=== PATIENT | male | born 1980 | race Caucasian/White ===

== ENCOUNTER 2018-05-14 20:49 | Emergency (ER) | payer SELFPAY ==
--- NOTE | 2018-05-14 21:08 | ED.GENADUL ---
Disposition Clinical Impression: Accidental heroin overdose Disposition: HOME Condition: Good Additional Instructions: Avoid drugs in the future. Avoid alcohol tonight. Follow-up primary care as needed. Return to ED for decreasing mental status, vomiting, other problems. Referrals: Primary Care Provider [Outside] Medical Decision Making - Medical Decision Making Patient arrives here awake and alert. His vital signs are normal. He is given Zofran ODT for the nausea. He has agreed to be watched for the next few hours to make sure he does not have any issues as the Narcan wears off. Patient observed for 2 hours with no rebound. He remains awake and alert with reactive pupils. He has no complaints. He understands the severity of his overdose. States that he has no intention to continue to use heroin. Advised not to consume alcohol tonight. Follow-up with PCP as needed. Return to ED if any problems. History of Present Illness - General Stated complaint: CALEX Time Seen by Provider: 05/14/18 20:58 Source: patient, EMS Mode of arrival: EMS Limitations: no limitations - History of Present Illness Initial comments: Patient presents to ED status post heroin overdose. Patient has been clean for a very long time. Tonight he shot up two bags of heroin. He became unresponsive with agonal respirations. When [facility] arrived he received 4 mg grams of intranasal Narcan. He did require BVM. Ultimately received a total of 12 mg of Narcan intranasally before he woke up. He arrives here somewhat nauseated. He had had some wine earlier in the afternoon. He denies any other drug use. He was not trying to harm himself. He is not on methadone or Suboxone. - Related Data Unknown [No Known Home Meds] 05/14/18 Allergies Allergy/AdvReac Type Severity Reaction Status Date / Time No Known Allergies Allergy Unverified 05/14/18 21:16 Review of Systems Constitutional: denies: chills, fever ENT: denies: ear pain, congestion Respiratory: denies: cough, shortness of breath Cardiovascular: denies: chest pain Gastrointestinal: nausea. denies: abdominal pain, vomiting Musculoskeletal: denies: back pain, arthralgia Skin: denies: rash Neurological: denies: headache, weakness, numbness Psychiatric: denies: homicidal thoughts, suicidal thoughts Past Medical History - Past Medical History Medical history: no medical history Surgical history: cholecystectomy, other (Splenectomy) - Social History Smoking status: current everyday smoker Alcohol use: recent Drug use: opiates General Exam - General General appearance: alert, in no apparent distress - Head Head exam: Present: atraumatic, normocephalic - Eye Eye exam: Present: PERRL - Respiratory Respiratory exam: Present: normal lung sounds bilaterally - Cardiovascular Cardiovascular Exam: Present: regular rate, normal rhythm, normal heart sounds - GI/Abdominal GI/Abdominal exam: Present: soft. Absent: distended, tenderness, guarding - Extremities Exam Extremities exam: Present: normal inspection, full ROM - Neurological Exam Neurological exam: Present: alert, oriented X3, CN II-XII intact. Absent: motor sensory deficit - Psychiatric Psychiatric exam: Present: normal affect, normal mood
[2018-05-14 21:09] VITALS: BP 114/76; PULSE 85; RESP 16; TEMP 36.6; O2SAT 97
[2018-05-14 21:12] VITALS: RESP 16
[2018-05-14 23:20] VITALS: BP 124/76; PULSE 104; RESP 16; O2SAT 97
== END 2018-05-14 23:30 | disposition home or self-care (01) ==
PROVIDERS: Emergency Provider Emergency Medicine
DX: T40.1X1A Poisoning by heroin, accidental (unintentional), initial encounter (principal); R11.0 Nausea; F11.10 Opioid abuse, uncomplicated
CPT/HCPCS: 99285; 99284

== ENCOUNTER 2019-01-26 16:31 | Emergency (ER) | payer MEDICAID, SELFPAY ==
[2019-01-26 16:42] VITALS: BP 121/64; PULSE 88; RESP 15; TEMP 36.5; O2SAT 95
--- NOTE | 2019-01-26 17:01 | W.ED.GENAD ---
Discharge Plan Disposition Patient Disposition: HOME Condition: Stable Discharge Details Chief Complaint: GenMedical Clinical Impression: Fatigue Primary Care Provider: Muna,Local ED Provider: Edy Chavarria Home Meds and New Rx's Prescriptions: No Action No Known Home Meds RF: 0 Discharge Instructions Additional Instructions: Your EKG does not show any concerning findings Follow up with your primary care provider within 1-2 weeks keep a log when you have the symptoms of what you are doing at the time to show your primary care provider if symptoms are worsening, or you have worsening symptoms such as fever or shortness of breath return to the emergency department Medical Decision Making 38 yo male with hx of substance abuse who is currently smoking opiates intermittently per pt, is hepatitis C positive, who comes in with complaints of over a year of intermittent very brief periods of fatigue and feels his knees might buckle. States it is not daily and can't think of any exacerbating factors that brings it on. He did not have symptoms today, he actually was calling his pcp's office to discuss a hepatitis med and mentioned hese intermittent symptoms and states the nurse told him to come here He denies fevers, chills, chest pain, sob, abd pain. He has no murmurs on exam is speaking in full sentences and denies any symptoms now. He has no focal neuro deficits. I suspect his symptoms could be related to the drug use, also could be due to sleep disorders. Negative ros otherwise so doubt entities such as thyroid disorder, anemia, and has no findings to suggest arrythmia and has normal ekg. Do not feel any acute workup indicated. Will d/c home and advised to try and keep journal of when he has these symptoms and if they last longer than a few seconds or has new symptoms such as fevers, chest pain or dyspnea to return to the ED and that he should also f/u with pcp. I offered referral for help with his substance abuse but he declined at this time. Differential Diagnosis narcolepsy, arrythmia, drug use disorder ECG Data Attestation: I personally reviewed and interpreted this ECG (s) as follows: Prior ECG tracings: not available for review Interpretation: sinus rhythm, rate of 78, pr 128, qtc 415 HPI General Mode of arrival: ambulatory. Date/Time Provider Initiated Documentation: 01/26/19 16:45. Limitations to Documentation: no limitations. Information obtained by: patient. History of Present Illness 38 year old M presents to the emergency department with the chief complaint of fatigue spells, Patient started experiencing this year(s) (1) and it has been intermittent. No relieving factors improve symptom(s), No exacerbating factors reported . Patient notes no other symptoms.. Patient did receive the following treatments prior to arrival, none Related Data Home Medications Medication Instructions Recorded Confirmed Unknown [No Known Home Meds] 05/14/18 05/14/18 Allergies Allergy/AdvReac Type Severity Reaction Status Date / Time No Known Allergies Allergy Unverified 01/26/19 16:48 General Stated Complaint: GenMedical ISAK: 3 Review of Systems Review of Systems All systems reviewed & are unremarkable except as noted in HPI and below Constitutional Denies chills and Denies fever(s) ENT Denies change in voice Cardiovascular Denies chest pain and Denies dyspnea Respiratory Denies dyspnea Gastrointestinal Denies abdominal pain, Denies nausea and Denies vomiting Genitourinary Denies dysuria Musculoskeletal Denies joint swelling Integumentary/Breasts Denies rash Endocrine Denies cold intolerance and Denies heat intolerance PFSH Social History Smoking/Tobacco Use Status: Current-Occasional Tobacco Type: cigarettes Details: Fentanyl 2 x week Do you feel safe at home: Yes Do you feel safe in your relationship?: Yes Exam Const General: no acute distress Orientation: alert HENMT Head: normal to inspection Ears: external ears normal General nose exam: external nose normal Mouth: moist mucous membranes Eyes General: appearance normal, both eyes and all related structures Neck Neck: normal visual inspection Resp Effort & Inspection: normal respiratory effort and able to speak in complete sentences Cardio Rate: regular rate Skin General skin exam: no rashes or lesions noted Neuro General: alert and oriented x3 Extrem General: normal to inspection Psych Mental Status: mental status grossly normal Course Vital Signs Temperature 36.5 C 01/26/19 16:42 Pulse 88 01/26/19 16:42 Respiratory Rate 15 01/26/19 16:42 Blood Pressure 121/64 01/26/19 16:42 Pulse Oximetry 95 01/26/19 16:42 Temperature 36.5 C 01/26/19 16:42 Temperature Source Temporal Artery Scan 01/26/19 16:42 Pulse 88 01/26/19 16:42 Respiratory Rate 15 01/26/19 16:42 Respiratory Effort Non-Labored 01/26/19 16:47 Blood Pressure 121/64 01/26/19 16:42 Blood Pressure Position Sitting 01/26/19 16:42 Pulse Oximetry 95 01/26/19 16:42 Oxygen Delivery Method Room Air 01/26/19 16:42 Oxygen Flow Rate 0 01/26/19 16:42 Pain Level 0 01/26/19 16:42
--- NOTE | 2019-01-26 17:11 | ED.GENADUL_ITS ---
Discharge Plan Disposition Patient Disposition: HOME Condition: Stable Discharge Details Chief Complaint: GenMedical Clinical Impression: Fatigue Primary Care Provider: Muna,Local ED Provider: Edy Chavarria Home Meds and New Rx's Prescriptions: No Action No Known Home Meds RF: 0 Discharge Instructions Additional Instructions: Your EKG does not show any concerning findings Follow up with your primary care provider within 1-2 weeks keep a log when you have the symptoms of what you are doing at the time to show your primary care provider if symptoms are worsening, or you have worsening symptoms such as fever or shortness of breath return to the emergency department Medical Decision Making 38 yo male with hx of substance abuse who is currently smoking opiates intermittently per pt, is hepatitis C positive, who comes in with complaints of over a year of intermittent very brief periods of fatigue and feels his knees might buckle. States it is not daily and can't think of any exacerbating factors that brings it on. He did not have symptoms today, he actually was calling his pcp's office to discuss a hepatitis med and mentioned hese intermittent symptoms and states the nurse told him to come here He denies fevers, chills, chest pain, sob, abd pain. He has no murmurs on exam is speaking in full sentences and denies any symptoms now. He has no focal neuro deficits. I suspect his symptoms could be related to the drug use, also could be due to sleep disorders. Negative ros otherwise so doubt entities such as thyroid disorder, anemia, and has no findings to suggest arrythmia and has normal ekg. Do not feel any acute workup indicated. Will d/c home and advised to try and keep journal of when he has these symptoms and if they last longer than a few seconds or has new symptoms such as fevers, chest pain or dyspnea to return to the ED and that he should also f/u with pcp. I offered referral for help with his substance abuse but he declined at this time. Differential Diagnosis narcolepsy, arrythmia, drug use disorder ECG Data Attestation: I personally reviewed and interpreted this ECG (s) as follows: Prior ECG tracings: not available for review Interpretation: sinus rhythm, rate of 78, pr 128, qtc 415 HPI General Mode of arrival: ambulatory . Date/Time Provider Initiated Documentation: 01/26/19 16:45 . Limitations to Documentation: no limitations . Information obtained by: patient . History of Present Illness 38 year old M presents to the emergency department with the chief complaint of fatigue spells, Patient started experiencing this year(s) (1) and it has been intermittent. No relieving factors improve symptom(s), No exacerbating factors reported . Patient notes no other symptoms.. Patient did receive the following aida atments prior to arrival, none Related Data Home Medications Medication Instructions Recorded Confirmed Unknown [No Known Home Meds] 05/14/18 05/14/18 Allergies Allergy/AdvReac Type Severity Reaction Status Date / Time No Known Allergies Allergy Unverified 01/26/19 16:48 General Stated Complaint: GenMedical ISAK: 3 Review of Systems Review of Systems All systems reviewed & are unremarkable except as noted in HPI and below Constitutional Denies chills and Denies fever(s) ENT Denies change in voice Cardiovascular Denies chest pain and Denies dyspnea Respiratory Denies dyspnea Gastrointestinal Denies abdominal pain, Denies nausea and Denies vomiting Genitourinary Denies dysuria Musculoskeletal Denies joint swelling Integumentary/Breasts Denies rash Endocrine Denies cold intolerance and Denies heat intolerance PFSH Social History Smoking/Tobacco Use Status: Current-Occasional Tobacco Type: cigarettes Details: Fentanyl 2 x week Do you feel safe at home: Yes Do you feel safe in your relationship?: Yes Exam Const General: no acute distress Orientation: alert HENMT Head: normal to inspection Ears: external ears normal General nose exam: external nose normal Mouth: moist mucous membranes Eyes General: appearance normal, both eyes and all related structures Neck Neck: normal visual inspection Resp Effort & Inspection: normal respiratory effort and able to speak in complete sentences Cardio Rate: regular rate Skin General skin exam: no rashes or lesions noted Neuro General: alert and oriented x3 Extrem General: normal to inspection Psych Mental Status: mental status grossly normal Course Vital Signs Temperature 36.5 C 01/26/19 16:42 Pulse 88 01/26/19 16:42 Respiratory Rate 15 01/26/19 16:42 Blood Pressure 121/64 01/26/19 16:42 Pulse Oximetry 95 01/26/19 16:42 Temperature 36.5 C 01/26/19 16:42 Temperature Source Temporal Artery Scan 01/26/19 16:42 Pulse 88 01/26/19 16:42 Respiratory Rate 15 01/26/19 16:42 Respiratory Effort Non-Labored 01/26/19 16:47 Blood Pressure 121/64 01/26/19 16:42 Blood Pressure Position Sitting 01/26/19 16:42 Pulse Oximetry 95 01/26/19 16:42 Oxygen Delivery Method Room Air 01/26/19 16:42 Oxygen Flow Rate 0 01/26/19 16:42 Pain Level 0 01/26/19 16:42
== END 2019-01-26 17:29 | disposition home or self-care (01) ==
PROVIDERS: Emergency Provider Emergency Medicine
DX: R53.83 Other fatigue (principal); F11.10 Opioid abuse, uncomplicated
CPT/HCPCS: 93005; 99283; 93010

== ENCOUNTER 2021-01-07 04:29 | Emergency (ER) | payer MEDICAID, SELFPAY ==
[2021-01-07] VITALS (9 sets, daily range): BP systolic 130–132; BP diastolic 80–106; PULSE 98–116; RESP 13–18; TEMP 36.8; O2SAT 96–99
--- NOTE | 2021-01-07 04:30 | RT.EKG_ITS ---
APPROVED REPORT Exam: Resting ECG Patient Location: E HR:99 bpm ECG Measurements Heart Rate 99 AXIS OH 135 P 35 QRSd 86 QRS 51 QT 349 T 31 QTc 448 Conclusion Sinus rhythm...normal P axis, V-rate 60- 99
--- NOTE | 2021-01-07 04:39 | W.ED.GENAD ---
Discharge Plan Disposition Patient Disposition: AGAINST MEDICAL ADVICE Condition: Stable Discharge Details Clinical Impression: Opiate overdose Primary Care Provider: Muna,Local ED Provider: Edy Chavarria Home Meds and New Rx's Prescriptions: New Narcan 4 mg/actuation spray,non-aerosol 4 mg intranasal Q2-3M PRNQty: 2 RF: 0 Continued buprenorphine-naloxone 8-2 mg Tablet, Sublingual 1 tab SUBLINGUAL DAILY RF: 0 Discharge Instructions Additional Instructions: You suffered from an opiate overdose and woke up due to getting narcan from ems follow up with your primary care provider as soon as possible especially if interested in treatment for substance abuse if you feel more ill, have difficulty breathing or persistent vomit return to the emergency department Medical Decision Making 40 yo male with hx of substance abuse comes in after he injected into a vein in his right arm what he thought was cocaine around 3am, became unresponsive. EMS was called and administed narcan when they found him unresponsive and he quickly regained consciousness and orientation and arrives caox4 with clear speech and no complaints. Denies alcohol use and has no chest pain, dyspnea, headache, abdomen pain. No focal motor or sensation deficits. Given rapid reversal with narcan what he thought was cocaine likely had opiates in it as well. He is willing to stay to be observed in case he needs another dose of narcan. HE declines speaking with resource recovery specialist and has no si/hi at this time. pt requesting d/c and continues to be caox4 and has capacity to make his own decisions. He understands risks of leaving if the opiate he took lasts longer than the narcan including becoming unresponsive again which could lead to and permanent disability and he is willing to accept these risks. He is leaving against my medical advise as I recommended 2 hour ED observation. He understands he can return if he changes his mind and he should f/u with pcp saw Differential Diagnosis Differential Diagnosis: opiate overdose, drug overdose Medical Records Medical records reviewed: Yes I reviewed the patient's medical records. ECG Data Attestation: I personally reviewed and interpreted this ECG (s) as follows: Prior ECG tracings: not available for review Interpretation: sinus rhythm, rate of 99, pr 135, no acute st t wave ischemic findings HPI General Mode of arrival: ambulatory. Date/Time Provider Initiated Documentation: 01/07/21 04:38. Limitations to Documentation: no limitations. Information obtained by: patient. History of Present Illness 40 year old M presents to the emergency department with the chief complaint of unreponsive after drug use, described as moderate, and it has been now resolved. other things that improve symptom(s), (narcan) No exacerbating factors reported . Patient notes no other symptoms.. Patient did receive the following treatments prior to arrival, other (narcan) Related Data Home Medications Medication Instructions Recorded Confirmed buprenorphine-naloxone 1 tab SUBLINGUAL DAILY 01/07/21 01/07/21 naloxone [Narcan] 4 mg INTRANASAL Q2-3M PRN #2 ea 01/07/21 Previous Rx's Medication Instructions Recorded naloxone [Narcan] 4 mg INTRANASAL Q2-3M PRN #2 ea 01/07/21 Allergies Allergy/AdvReac Type Severity Reaction Status Date / Time No Known Allergies Allergy Unverified 01/07/21 04:38 General Stated Complaint: OD/Poison ISAK: 2 Review of Systems All systems reviewed & are unremarkable except as noted in HPI and below Constitutional Constitutional: Denies chills, Denies fever(s) and Denies weakness Cardiovascular Cardiovascular: Denies chest pain and Denies dyspnea Respiratory Respiratory: Denies cough and Denies dyspnea Gastrointestinal Gastrointestinal: Denies abdominal pain, Denies nausea and Denies vomiting Musculoskeletal Musculoskeletal: Denies joint swelling Neurologic Neurologic: Denies weakness [facility] Social History Smoking/Tobacco Use Status: Current-Occasional Tobacco Type: cigarettes Smoking risk assessment performed?: Yes Drug use: Occasionally Substance use type: crack/cocaine Details: Fentanyl 2 x week Do you feel safe at home: Yes Do you feel safe in your relationship?: Yes Exam Const General: no acute distress Orientation: alert HENDC Head: normal to inspection Ears: external ears normal General nose exam: external nose normal Mouth: moist mucous membranes Eyes General: appearance normal, both eyes and all related structures Neck Neck: normal visual inspection Resp Effort & Inspection: normal respiratory effort and able to speak in complete sentences Cardio Rate: regular rate GI Palpation: soft, not rigid and nontender Skin General skin exam: no rashes or lesions noted Neuro General: patient alert and patient oriented x3 Extrem General: normal to inspection Psych Mental Status: mental status grossly normal Course Vital Signs Vital signs: Vital Signs Temperature 36.8 C 01/07/21 04:32 Pulse 108 H 01/07/21 04:32 Respiratory Rate 16 01/07/21 04:32 Blood Pressure 131/80 01/07/21 04:32 Pulse Oximetry 98 01/07/21 04:32 Temperature 36.8 C 01/07/21 04:32 Temperature Source Tympanic 01/07/21 04:32 Pulse 108 H 01/07/21 04:32 Respiratory Rate 16 01/07/21 04:32 Respiratory Effort Non-Labored 01/07/21 04:32 Blood Pressure 131/80 01/07/21 04:32 Blood Pressure Position Sitting 01/07/21 04:32 Pulse Oximetry 98 01/07/21 04:32 Oxygen Delivery Method Room Air 01/07/21 04:32 Oxygen Flow Rate 0 01/07/21 04:32 Pain Level 0 01/07/21 04:32
--- NOTE | 2021-01-07 05:19 | NUR.NOTE ---
Nursing Note: Pt requesting to leave AMA> Dr Chavarria present at bedside to discuss this with pt. Pt alert oriented with clear speech and very steady gait. Pt agreeable to AMA form and this is filled out. Pt was given narcan kit by EMS crew that brought him in. This RN and pt opens kit and demonstration with verbal agreement how to use this kit is reviewed. Pt instructed to teach his friend (who is giving him a ride) how to use this as well. Pt leaves after drinking cup of water, steady gait. Pt calm well mannered and thankful towards staff. Pt walked to [employer] where he will meet his ride. [employer].
== END 2021-01-07 05:30 | disposition left against medical advice (07) ==
LOC: ER 05:23
PROVIDERS: Emergency Provider Emergency Medicine
DX: T40.601A Poisoning by unspecified narcotics, accidental (unintentional), initial encounter (principal); R40.4 Transient alteration of awareness; Z53.29 Procedure and treatment not carried out because of patient's decision for other reasons
CPT/HCPCS: 93005; 99284; 93010; 99283

== ENCOUNTER 2021-03-18 02:36 | Outpatient (CLI) | payer MEDICAID, SELFPAY ==
[2021-03-18 15:45] LABS: HCT 42.5 % (40.0-50.0); HGB 15.2 g/dL (13.5-17.5); MCH 30.5 pg (27.0-33.0); MCHC 35.8 % (32.0-36.0); MCV 85.3 fL (80-95); MPV 9.3 fL (8.0-11.0); Platelet Count 472 10^3/uL (130-400); RBC 4.98 10^6/uL (4.36-5.78); RDW 12.1 % (11.8-14.1); RDW-SD 37.5 fL; WBC 10.32 10^3/uL (4.4-10.8)
[2021-03-18 16:41] LABS: ALT 30 U/L (16-63); AST 20 U/L (15-37); Albumin 4.2 g/dL (3.4-5.0); Alkaline Phosphatase 71 U/L (46-116); Anion Gap 9.3 mmol/L (3-11); BUN 13 mg/dL (7-18); Bilirubin, Total 0.6 mg/dL (0.2-1.0); CO2 29.7 mmol/L (21.0-32.0); CREATININE 1.1 mg/dL (0.70-1.30); Calcium 9.5 mg/dL (8.5-10.1); Calculated LDL 95 mg/dL (<100); Chloride 104 mmol/L (98-107); Cholesterol 163 mg/dL (<200); Glucose 78 mg/dL (74-106); HDL Cholesterol 51 mg/dL (40-60); Sodium 143 mmol/L (136-145); Total Protein 7.5 g/dL (6.4-8.2); Triglyceride 85 mg/dL (<150)
[2021-03-19 09:40] LABS: HIV-1/2 Ag & Ab Screen Negative (Negative)
== END 2021-03-18 02:37 | disposition home or self-care (01) ==
LOC: LBO 02:36
PROVIDERS: PCP Nurse Practitioner Family; Visit Provider Nurse Practitioner Family
DX: Z13.1 Encounter for screening for diabetes mellitus (principal); Z13.220 Encounter for screening for lipoid disorders; F11.20 Opioid dependence, uncomplicated; T40.601A Poisoning by unspecified narcotics, accidental (unintentional), initial encounter; F33.1 Major depressive disorder, recurrent, moderate
CPT/HCPCS: 36415; 80053; 80061; 85027; 87389; 83036